=== PATIENT | female | born 2000 | race Caucasian/White ===

== ENCOUNTER 2021-07-24 05:29 | Emergency (ER) | payer OTHER ==
[~2021-07-24] VITALS: Ht 160 cm; Wt 55.3 kg
[2021-07-24] MEDS ORDERED: ORTH1TAB8 PO (05:46)
[2021-07-24 06:40] LABS: BASO % 0.4 % (0.0-1.0); EOS # 0.1 10^3/uL (0.0-0.5); EOS % 1.8 % (0.0-3.0); HEMATOCRIT 39.6 % (36.0-47.0); HEMOGLOBIN 13.6 g/dl (12.0-15.5); LYMPH # 1.9 10^3/uL (1.5-5.0); LYMPH % 38.7 % (24.0-44.0); MEAN CORPUSCULAR HEMOGLOBIN 29.8 pg (27.0-33.0); MEAN CORPUSCULAR HGB CONC 34.3 g/dl (32.0-36.5); MEAN CORPUSCULAR VOLUME 86.7 fl (80.0-96.0); MONO # 0.4 10^3/uL (0.0-0.8); MONO % 8.6 % (2.0-8.0); NEUTROPHILS # 2.5 10^3/uL (1.5-8.5); NEUTROPHILS % 50.3 % (36.0-66.0); PLATELET COUNT, AUTOMATED 233 10^3/uL (150-450); RED BLOOD COUNT 4.57 10^6/uL (4.00-5.40); WHITE BLOOD COUNT 4.9 10^3/uL (4.0-10.0)
[2021-07-24 07:17] LABS: BLOOD UREA NITROGEN 13 MG/DL (7-18); CALCIUM LEVEL 8.9 MG/DL (8.5-10.1); CARBON DIOXIDE LEVEL 27 MEQ/L (21-32); CHLORIDE LEVEL 109 MEQ/L (98-107); CREATININE FOR GFR 0.64 MG/DL (0.55-1.30); GLUCOSE, FASTING 93 MG/DL (70-100); MAGNESIUM LEVEL 1.9 MG/DL (1.8-2.4); POTASSIUM SERUM 4.2 MEQ/L (3.5-5.1); SODIUM LEVEL 139 MEQ/L (136-145)
[2021-07-24 08:10] VITALS: BP 118/61
== END 2021-07-24 08:12 | disposition home or self-care (01) ==
LOC: M ED 05:29
DX: R51.9 Headache, unspecified (principal); R11.0 Nausea; Z79.3 Long term (current) use of hormonal contraceptives

== ENCOUNTER 2021-12-03 00:23 | Emergency (ER) | payer OTHER ==
[~2021-12-03] VITALS: Ht 160 cm; Wt 54.5 kg
[~2021-12-03 00:23] MED LIST: ORTH1TAB8 PO
[2021-12-03 00:24] VITALS: BP 126/77
== END 2021-12-03 03:31 | disposition left against medical advice (07) ==
LOC: M ED 00:23
DX: Z53.29 Procedure and treatment not carried out because of patient's decision for other reasons (principal)